=== PATIENT | female | born 1960 | race Hispanic/Latino ===

== ENCOUNTER 2024-03-23 10:48 | Emergency (ER) | payer OTHER ==
[~2024-03-23] VITALS: Ht 160 cm; Wt 92.5 kg
[2024-03-23] MEDS: acetaMINOPHEN WITH coDEINE 1 TAB TAB PO ONE (11:06)
[2024-03-23] MEDS ORDERED: IBUP-2077 PO (11:55)
[2024-03-23 12:36] VITALS: BP 143/82; PULSE 85; RESP 20; TEMP 97.9; O2SAT 99
== END 2024-03-23 12:37 | disposition home or self-care (01) ==
LOC: EDH 10:48
DX: S82.032A Displaced transverse fracture of left patella, initial encounter for closed fracture (principal); E11.9 Type 2 diabetes mellitus without complications; Z98.890 Other specified postprocedural states; W18.39XA Other fall on same level, initial encounter; Y93.89 Activity, other specified; Y92.89 Other specified places as the place of occurrence of the external cause; Y99.8 Other external cause status
CPT/HCPCS: 29505; 73562